=== PATIENT | male | born 1975 | race African-American/Black ===

== ENCOUNTER 2020-02-03 16:53 | Emergency (ER) | payer BC, SELFPAY ==
[2020-01-31 09:53] VITALS: BMI 26.5
[2020-02-03 16:54] VITALS: BP 135/86; PULSE 92; RESP 18; TEMP 36.6; O2SAT 100; BMI 28.3
--- NOTE | 2020-02-03 17:11 | ED.VIS.GEN ---
History of Present Illness Chief Complaint: Numb/Ting Informant: Patient Onset: Days - 1 week Context: Gradual Onset Current Severity: Moderate Maximum Severity: Moderate Narrative: Patient presents stating that he thinks he has Olivia's palsy. He noted some numbness and tingling to the right side of his face. He tells me he was not able to smile appropriately or blink his eyelid when he went to the urgent care on the . Note at that time reports normal facial exam with evidence of dental caries and he was given a prescription for Augmentin. Patient presents with continued symptoms. He feels that the right side of his face is swollen. He has not had fever or chills. Denies headache. Past Medical History - Allergies and Home Meds Allergies/Adverse Reactions: Allergies No Known Allergies Allergy (Unverified 02/03/20 16:57) Primary Care Physician: NOT,DEFINED [Primary Care Provider] - Past Medical History: None Smoking Status: Never smoker Review of Systems General: Denies: Chills, Fever Eyes: Denies: Visual changes - bilaterally ENT: Reports: Right ear pain - Mild pain posterior to right ear Cardiovascular: Denies: Chest pain Respiratory: Denies: Dyspnea, Cough Gastrointestinal: Denies: Abdominal pain, Nausea, Vomiting, Diarrhea Genitourinary: Denies: Dysuria Musculoskeletal: Denies: Myalgias Neurological: Reports: Weakness - Right facial weakness, Numbness Allergy: Denies: Uticaria Physical Exam Vital Signs/Narrative: Vital Signs Temp Pulse Resp BP Pulse Ox 02/03/20 16:54 98 F 92 18 135/86 H 100 General: Well nourished, Well developed Head: Normocephalic Eyes: Perrl, - - Patient is not able to close his right eye. ENT: Moist mucous membranes, - - Patient has evidence with Olivia's palsy with weakness noted on the right. He is unable to raise his right eyebrow, close his right eyelid, or smile on the right side of his face. Neck: Supple Cardiovascular: Regular rate, Regular rhythm Respiratory: No distress, CTA bilaterally Abdomen: Soft, Nontender Skin: Normal color Neurological: Alert, Oriented x3, - - As above Psychological: Normal affect Diagnostic/Tx/Re-eval - Medical Decision Making Patient clearly has signs of Olivia's palsy. Patient be treated with acyclovir and prednisone. He was advised that symptoms can last multiple weeks. ED Disposition - Plan for ED Patient: Disposition: Home or Assisted Living Diagnosis: Olivia's palsy Instructions: ED [place] [facility] Prescriptions: Acyclovir 1 tab PO 5X/DAY #35 tab Transmission Status: Pending to [facility] Prednisone [Deltasone] 40 mg PO DAILY #10 tab Transmission Status: Pending to [facility] Referrals: Elida Mcnulty MD [COURTESY STAFF PHYSICIAN] - As Needed
[2020-02-03] MEDS: predniSONE 20 MG Tablet 40 MG PO (17:45)
[2020-02-03] MEDS: Acyclovir 200 MG Capsule 400 MG PO (17:46)
[2020-02-03 17:49] VITALS: RESP 18
== END 2020-02-03 17:51 | disposition home or self-care (01) ==
LOC: ED 17:30
PROVIDERS: Emergency Provider Emergency Medicine
DX: G51.0 Bell's palsy (principal); K02.9 Dental caries, unspecified
CPT/HCPCS: 99283

== ENCOUNTER 2020-09-21 11:15 | Inpatient (IN) | payer BC, SELFPAY ==
--- NOTE | 2020-09-21 11:30 | NURSING ---
Very pleasant on arrival, alert and oriented. Voiced no concerns. Verbalized usage and demo of call dorantes use and safety.
[2020-09-21 11:43] VITALS: BP 109/64; PULSE 100; RESP 17; TEMP 37.1; O2SAT 97; BMI 29.0; BMI 29.1
[2020-09-21] MEDS: Acetaminophen 325 MG Tablet 650 MG PO ×2 (13:42→19:52)
[2020-09-21] MEDS: oxyCODONE 5 MG Tablet PO ×2 (13:42→19:52)
[2020-09-21] MEDS: Methocarbamol 500 MG Tablet PO ×3 (15:12→20:03)
[2020-09-21] MEDS: Gabapentin 300 MG Capsule PO (19:08)
[2020-09-21 19:15] VITALS: BP 112/66; PULSE 88; RESP 17; TEMP 36.8; O2SAT 98
[2020-09-21 22:00] VITALS: PULSE 82; RESP 16; O2SAT 98
[2020-09-22] MEDS: Acetaminophen 325 MG Tablet 650 MG PO ×2 (02:09→08:12)
[2020-09-22] MEDS: oxyCODONE 5 MG Tablet PO ×2 (02:10→08:11)
[2020-09-22] MEDS: Enoxaparin 40 MG/0.4 ML Syringe SC (06:51)
[2020-09-22 06:55] VITALS: O2SAT 100
[2020-09-22] MEDS: Gabapentin 300 MG Capsule PO ×3 (07:38→22:37)
[2020-09-22 08:57] VITALS: BP 118/69; PULSE 102; RESP 16; TEMP 36.8; O2SAT 100
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
[2020-09-22] MEDS: Methocarbamol 500 MG Tablet PO (09:32)
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
[2020-09-22] MEDS: oxyCODONE 5 MG Tablet 10 MG PO ×2 (10:34→18:58)
[2020-09-22] MEDS: Acetaminophen 500 MG Tablet 1000 MG PO ×2 (13:30→22:36)
[2020-09-22] MEDS: tiZANidine HCl 2 MG Tablet 4 MG PO ×2 (16:31→22:36)
[2020-09-22 19:45] VITALS: BP 123/67; PULSE 98; RESP 18; TEMP 36.6; O2SAT 100
[2020-09-22 22:00] VITALS: RESP 15; O2SAT 98
[2020-09-23] MEDS: oxyCODONE 5 MG Tablet 10 MG PO ×3 (01:16→19:36)
[2020-09-23] MEDS: tiZANidine HCl 2 MG Tablet 4 MG PO ×3 (05:14→21:15)
[2020-09-23] MEDS: Acetaminophen 500 MG Tablet 1000 MG PO ×3 (05:14→21:14)
[2020-09-23] MEDS: Enoxaparin 40 MG/0.4 ML Syringe SC (05:14)
[2020-09-23] MEDS: Senna/Docusate Sodium 1 Tablet 2 TABLET PO (07:42)
[2020-09-23] MEDS: Gabapentin 300 MG Capsule PO ×3 (07:42→19:37)
[2020-09-23 08:39] VITALS: BP 119/79; PULSE 89; RESP 16; TEMP 37.2; O2SAT 97
[2020-09-23 09:16] VITALS: O2SAT 99
[2020-09-23 20:54] VITALS: BP 117/74; PULSE 101; RESP 16; TEMP 36.6; O2SAT 99
[2020-09-23] MEDS: Zolpidem Tartrate 5 MG Tablet PO (21:15)
[2020-09-24] MEDS: oxyCODONE 5 MG Tablet 10 MG PO ×5 (01:33→23:53)
[2020-09-24 06:05] LABS: Hematocrit 28.7 % (40-54); Hemoglobin 8.6 g/dL (13.0-16.5); Mean Corpuscular Hgb 26.4 pg (27.0-32.0); Mean Platelet Vol. 8.5 fl (6.2-12.0); Platelet Count 662 K/mm3 (150-450); RBC Distribution Width SD 45.1 fl (35.1-43.9); Red Blood Count 3.26 M/mm3 (4.6-6.2); White Blood Count 6.2 K/mm3 (4.4-11.0)
[2020-09-24] MEDS: Acetaminophen 500 MG Tablet 1000 MG PO ×3 (06:24→21:34)
[2020-09-24] MEDS: tiZANidine HCl 2 MG Tablet 4 MG PO ×3 (06:24→21:34)
[2020-09-24] MEDS: Enoxaparin 40 MG/0.4 ML Syringe SC (06:42)
[2020-09-24 06:51] LABS: ALB/GLOB Ratio 0.6 RATIO (0.9-2.4); AST(SGOT) 55 U/L (15-37); Alanine Aminotransfer ALT/SGPT 136 U/L (16-61); Albumin, Serum 2.6 g/dL (3.2-5.0); Alkaline Phosphatase 266 U/L (45-117); Anion Gap 5 (5-15); BUN 13 mg/dL (7-18); BUN/Creat Ratio 20.2 RATIO (10-20); Calcium,Total 9.1 mg/dL (8.5-10.1); Chloride 104 mmol/L (98-107); Creatinine, Serum 0.64 mg/dL (0.70-1.30); EST Glomerular Filtration Rate 143 mL/min (>60); Est Glom Filt Rate - Afr Amer 172 mL/min (>60); Estimated Creatinine Clearance 132.92 ml/min; Globulin 4.2 g/dL (2.2-4.2); Glucose 106 mg/dL (74-106); Protein, Total 6.8 g/dL (6.4-8.2); Sodium Level 138 mmol/L (136-145)
[2020-09-24 07:46] LABS: Hemoglobin A1c 5.7 % (3.8-5.6)
[2020-09-24] MEDS: Gabapentin 300 MG Capsule PO ×3 (07:51→21:34)
[2020-09-24 08:43] VITALS: BP 117/75; PULSE 90; RESP 16; TEMP 36.7; O2SAT 94
[2020-09-24 09:22] VITALS: O2SAT 95
[2020-09-24 09:37] LABS: Cholesterol 150 mg/dL (200); High Density Lipoprotein 28 mg/dL; Triglycerides 167 mg/dL; Very Low Density Lipoprotein 33 mg/dL (5-40)
--- NOTE | 2020-09-24 10:50 | NURSING ---
message left for Dr Wells office to make pt f/u appt.
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
[2020-09-24 19:30] VITALS: BP 122/65; PULSE 97; RESP 20; TEMP 37.1; O2SAT 96
[2020-09-24 21:30] VITALS: PULSE 97; RESP 20
[2020-09-24] MEDS: Senna/Docusate Sodium 1 Tablet 2 TABLET PO (21:34)
[2020-09-24] MEDS: Zolpidem Tartrate 5 MG Tablet PO (23:51)
--- NOTE | 2020-09-25 01:13 | NURSING ---
Reviewed and agree with CONSUMER AFFAIRS SPECIALIST documentation & charting.
[2020-09-25] MEDS: tiZANidine HCl 2 MG Tablet 4 MG PO ×3 (05:56→22:13)
[2020-09-25] MEDS: Acetaminophen 500 MG Tablet 1000 MG PO ×3 (05:56→22:12)
[2020-09-25] MEDS: Enoxaparin 40 MG/0.4 ML Syringe SC (05:56)
[2020-09-25] MEDS: oxyCODONE 5 MG Tablet 10 MG PO ×3 (07:44→19:31)
[2020-09-25] MEDS: Gabapentin 300 MG Capsule PO ×3 (07:45→19:30)
[2020-09-25] MEDS: Senna/Docusate Sodium 1 Tablet 2 TABLET PO ×2 (07:45→22:13)
[2020-09-25 08:06] VITALS: BP 123/76; PULSE 88; RESP 18; TEMP 37.1; O2SAT 100
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
[2020-09-25 19:30] VITALS: BP 121/69; PULSE 85; RESP 18; TEMP 36.8; O2SAT 98
[2020-09-25] MEDS: Zolpidem Tartrate 5 MG Tablet PO (22:14)
[2020-09-26] MEDS: oxyCODONE 5 MG Tablet 10 MG PO ×4 (04:26→18:41)
[2020-09-26] MEDS: Enoxaparin 40 MG/0.4 ML Syringe SC (04:53)
[2020-09-26] MEDS: Acetaminophen 500 MG Tablet 1000 MG PO ×3 (04:53→21:00)
[2020-09-26] MEDS: tiZANidine HCl 2 MG Tablet 4 MG PO ×3 (04:53→21:00)
[2020-09-26] MEDS: Senna/Docusate Sodium 1 Tablet 2 TABLET PO ×2 (08:11→21:00)
[2020-09-26] MEDS: Gabapentin 300 MG Capsule PO ×3 (08:11→19:59)
[2020-09-26 08:34] VITALS: BP 142/72; PULSE 97; RESP 18; TEMP 36.8; O2SAT 98
--- NOTE | 2020-09-26 10:25 | CASEMGMT ---
Social Work IDT met with patient and S.O. via conference call for Team meeting. Discussed patient's progress in therapy. Pt is CGA for tx, ambulating 95 ft with FWW, shorter distances with crutches, and uses w/c for mobility as well. Pt is NWBS for LLE with femur fx on RLE./ Pt uses crutches to navigate steps since he has no HR at home. Pt is min-mod for shower tx, [place] for bathing while seated, set up fro grooming and UE dressing, and using ARE while in bed is set up for LE dressing. Pt is progressing well, but not sleeping well. Dr. julien adjust meds. Explained [place] [employer] insurance with NRD 1125 and continued stay is not guaranteed. The goal is for pt to return home with S.O. Will continue to follow. Kathi Diop, [employer] ADMINISTRATOR
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
[2020-09-26 19:17] VITALS: BP 135/66; PULSE 95; RESP 20; TEMP 37.3; O2SAT 99
[2020-09-26 19:50] VITALS: PULSE 95; RESP 20; O2SAT 99
--- NOTE | 2020-09-26 21:10 | NURSING ---
urine obtained for complete ua and sent to the lab
[2020-09-26 21:18] LABS: Bacteria 0 SEEN /hpf (None Seen); Red Blood Cells-Urine 0 SEEN /hpf (0-5); Squamous Epithelial Cells - UA 0 SEEN /hpf (0-5); White Blood Cells 0 SEEN /hpf (0-5)
[2020-09-26 21:28] LABS: Color, Urine Yellow (Yellow); Glucose, Dipstick Normal (Normal); Ketone-Dipstick 5 mg/dl (Negative); Leukocyte Esterase-Dipstick Negative /ul (Negative); Nitrite-Dipstick Negative (Negative); Occult Blood-Urine Negative /ul (Negative); Protein-Dipstick 15 mg/dl (Negative); Specific Gravity, Urine 1.025 (1.002-1.030); Urine Bilirubin Dipstick Negative (Negative); Urine Clarity Clear (Clear); Urine Urobilinogen Normal (Normal)
[2020-09-26 21:42] LABS: Mucous, Urine RARE /hpf (<or=2+)
[2020-09-26] MEDS: Zolpidem Tartrate 5 MG Tablet 10 MG PO (22:44)
--- NOTE | 2020-09-27 02:23 | NURSING ---
Reviewed and agree with HADOOP ADMIN documentation and charting.
[2020-09-27] MEDS: Enoxaparin 40 MG/0.4 ML Syringe SC (04:09)
[2020-09-27] MEDS: oxyCODONE 5 MG Tablet 10 MG PO ×4 (04:09→23:02)
[2020-09-27] MEDS: Acetaminophen 500 MG Tablet 1000 MG PO ×3 (04:09→23:03)
[2020-09-27] MEDS: tiZANidine HCl 2 MG Tablet 4 MG PO ×3 (04:12→23:03)
[2020-09-27 07:48] VITALS: BP 120/67; PULSE 94; RESP 16; TEMP 37; O2SAT 99
[2020-09-27] MEDS: Gabapentin 300 MG Capsule PO ×3 (08:18→18:56)
[2020-09-27 19:33] VITALS: BP 122/83; PULSE 103; RESP 16; TEMP 36.6; O2SAT 99
[2020-09-27] MEDS: Zolpidem Tartrate 5 MG Tablet 10 MG PO (23:03)
[2020-09-28] MEDS: Acetaminophen 500 MG Tablet 1000 MG PO ×3 (05:22→22:39)
[2020-09-28] MEDS: Enoxaparin 40 MG/0.4 ML Syringe SC (05:23)
[2020-09-28] MEDS: oxyCODONE 5 MG Tablet 10 MG PO ×3 (05:29→19:56)
[2020-09-28] MEDS: tiZANidine HCl 2 MG Tablet 4 MG PO ×3 (05:32→22:39)
[2020-09-28 08:11] VITALS: BP 135/64; PULSE 90; RESP 16; TEMP 37; O2SAT 99
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
[2020-09-28] MEDS: Polyethylene Glycol 3350 17 GM PACKET PO (09:39)
[2020-09-28] MEDS: Senna/Docusate Sodium 1 Tablet 2 TABLET PO (09:40)
[2020-09-28] MEDS: Gabapentin 300 MG Capsule PO ×3 (09:40→19:56)
[2020-09-28] MEDS: Arthritis Pain Compound 60 CLICK TUBE TOPICAL (19:57)
[2020-09-28 22:00] VITALS: BP 120/68; PULSE 95; RESP 18; TEMP 36.4; O2SAT 98
[2020-09-28] MEDS: Zolpidem Tartrate 5 MG Tablet 10 MG PO (22:39)
[2020-09-29] MEDS: Enoxaparin 40 MG/0.4 ML Syringe SC (06:20)
[2020-09-29] MEDS: tiZANidine HCl 2 MG Tablet 4 MG PO ×3 (06:21→21:31)
[2020-09-29] MEDS: Acetaminophen 500 MG Tablet 1000 MG PO ×3 (06:21→21:32)
[2020-09-29] MEDS: oxyCODONE 5 MG Tablet 10 MG PO ×2 (06:21→13:50)
[2020-09-29] MEDS: Gabapentin 300 MG Capsule PO ×3 (07:45→20:55)
[2020-09-29] MEDS: Arthritis Pain Compound 60 CLICK TUBE TOPICAL ×2 (07:45→21:29)
[2020-09-29 08:43] VITALS: BP 118/72; PULSE 83; RESP 16; TEMP 37.2; O2SAT 97
[2020-09-29 19:28] VITALS: BP 113/70; PULSE 81; RESP 16; TEMP 36.6; O2SAT 98
[2020-09-29] MEDS: oxyCODONE 5 MG Tablet PO (21:30)
[2020-09-29 22:00] VITALS: PULSE 76; RESP 16; O2SAT 97
[2020-09-29] MEDS: Zolpidem Tartrate 5 MG Tablet 10 MG PO (22:30)
[2020-09-30] MEDS: Enoxaparin 40 MG/0.4 ML Syringe SC (05:13)
[2020-09-30] MEDS: tiZANidine HCl 2 MG Tablet 4 MG PO ×3 (05:14→21:25)
[2020-09-30] MEDS: Acetaminophen 500 MG Tablet 1000 MG PO ×3 (05:14→21:00)
[2020-09-30] MEDS: oxyCODONE 5 MG Tablet 10 MG PO ×3 (05:14→20:50)
--- NOTE | 2020-09-30 05:30 | NURSING ---
Pt c/o discomfort in bed. Pain meds provided and pt repositioned to recliner. Pt c/o pain to neck and back while in bed. Staff to continue to monitor.
--- NOTE | 2020-09-30 06:49 | NURSING ---
Pt refused a.m. ADLs when offered by staff and stated that he wasn't going to do anything today.
[2020-09-30] MEDS: Gabapentin 300 MG Capsule PO ×3 (07:45→20:50)
[2020-09-30] MEDS: Arthritis Pain Compound 60 CLICK TUBE TOPICAL ×2 (07:47→21:28)
[2020-09-30 08:00] VITALS: BP 126/61; PULSE 93; RESP 14; TEMP 36.8; O2SAT 100
[2020-09-30 08:41] LABS: Hematocrit 32.9 % (40-54); Hemoglobin 9.9 g/dL (13.0-16.5); Mean Corp Hgb Conc 30.1 g/dL (32-36); Mean Corpuscular Hgb 26.1 pg (27.0-32.0); Mean Corpuscular Volume 86.8 fL (80-94); Mean Platelet Vol. 8.3 fl (6.2-12.0); Platelet Count 658 K/mm3 (150-450); RBC Distribution Width CV 14.2 % (11.6-14.6); RBC Distribution Width SD 45.1 fl (35.1-43.9); Red Blood Count 3.79 M/mm3 (4.6-6.2); White Blood Count 5.2 K/mm3 (4.4-11.0)
[2020-09-30 09:12] LABS: ALB/GLOB Ratio 0.8 RATIO (0.9-2.4); AST(SGOT) 16 U/L (15-37); Alanine Aminotransfer ALT/SGPT 59 U/L (16-61); Albumin, Serum 3.2 g/dL (3.2-5.0); Alkaline Phosphatase 235 U/L (45-117); Anion Gap 5 (5-15); BUN 16 mg/dL (7-18); BUN/Creat Ratio 19.9 RATIO (10-20); Calcium,Total 9.6 mg/dL (8.5-10.1); Chloride 105 mmol/L (98-107); EST Glomerular Filtration Rate 110 mL/min (>60); Est Glom Filt Rate - Afr Amer 134 mL/min (>60); Estimated Creatinine Clearance 106.33 ml/min; Globulin 4.2 g/dL (2.2-4.2); Glucose 138 mg/dL (74-106); Potassium 3.8 mmol/L (3.5-5.1); Protein, Total 7.4 g/dL (6.4-8.2); Sodium Level 140 mmol/L (136-145)
[2020-09-30 19:28] VITALS: BP 126/83; PULSE 96; RESP 16; TEMP 36.9; O2SAT 99
[2020-09-30 21:15] VITALS: PULSE 94; RESP 17; O2SAT 99
[2020-09-30] MEDS: Zolpidem Tartrate 5 MG Tablet 10 MG PO (22:44)
[2020-10-01] MEDS: oxyCODONE 5 MG Tablet 10 MG PO ×4 (04:05→20:16)
[2020-10-01] MEDS: Enoxaparin 40 MG/0.4 ML Syringe SC (06:43)
[2020-10-01] MEDS: Acetaminophen 500 MG Tablet 1000 MG PO ×3 (06:44→21:30)
[2020-10-01] MEDS: tiZANidine HCl 2 MG Tablet 4 MG PO ×3 (06:44→20:20)
[2020-10-01 07:52] VITALS: BP 114/58; PULSE 92; RESP 16; TEMP 37.1; O2SAT 100
[2020-10-01] MEDS: Gabapentin 300 MG Capsule PO ×3 (08:03→20:16)
[2020-10-01] MEDS: Arthritis Pain Compound 60 CLICK TUBE TOPICAL ×2 (08:03→20:20)
--- NOTE | 2020-10-01 10:42 | CASEMGMT ---
Social Work Pt requesting to DC home 10/02. IDT agreeable. Referred to [facility] for FWW, w/c, 3-in-1 commode. Pt to f/u with physician whom to recommend continued therapy regimen. S.O. to transport home. No other needs. Plan: DC home with S.O. 10/02, [facility] - FWW, w/c, 3-in-1 commode. No therapy. Kathi Diop, UNSTACKER WELT DRAWER
[2020-10-01 19:21] VITALS: BP 123/75; PULSE 93; RESP 17; TEMP 37; O2SAT 99
[2020-10-01 19:39] VITALS: PULSE 93; RESP 17; O2SAT 99
[2020-10-01] MEDS: Zolpidem Tartrate 5 MG Tablet 10 MG PO (23:12)
[2020-10-02] MEDS: oxyCODONE 5 MG Tablet 10 MG PO ×2 (04:55→12:39)
[2020-10-02] MEDS: Acetaminophen 500 MG Tablet 1000 MG PO (04:57)
[2020-10-02] MEDS: tiZANidine HCl 2 MG Tablet 4 MG PO (04:59)
--- NOTE | 2020-10-02 05:02 | NURSING ---
pt requested meds early this a.m. to enable rest.
[2020-10-02] MEDS: Arthritis Pain Compound 60 CLICK TUBE TOPICAL (08:05)
[2020-10-02] MEDS: Gabapentin 300 MG Capsule PO ×2 (08:05→12:06)
[2020-10-02] MEDS: Senna/Docusate Sodium 1 Tablet 2 TABLET PO (08:07)
[2020-10-02 08:31] VITALS: BP 109/85; PULSE 85; RESP 16; TEMP 36.9; O2SAT 98
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
[2020-10-02 13:04] VITALS: BP 109/85; PULSE 85; RESP 16; TEMP 36.9; O2SAT 99
--- NOTE | 2020-10-02 13:05 | NURSING ---
Discharged home with family. Discharge medication, instructions and appointments reviewed with pt. Denies questions or concerns
== END 2020-10-02 13:00 | disposition home or self-care (01) | DRG 560 ==
PROVIDERS: Admitting Provider Internal Medicine; Visit Provider Internal Medicine
DX: S72.21XD Displaced subtrochanteric fracture of right femur, subsequent encounter for closed fracture with routine healing (principal); D62 Acute posthemorrhagic anemia; S82.142D Displaced bicondylar fracture of left tibia, subsequent encounter for closed fracture with routine healing; S82.402D Unspecified fracture of shaft of left fibula, subsequent encounter for closed fracture with routine healing; V28.9XXD Unspecified motorcycle rider injured in noncollision transport accident in traffic accident, subsequent encounter; M47.812 Spondylosis without myelopathy or radiculopathy, cervical region; S83.512D Sprain of anterior cruciate ligament of left knee, subsequent encounter; S83.412D Sprain of medial collateral ligament of left knee, subsequent encounter; M21.372 Foot drop, left foot; G57.32 Lesion of lateral popliteal nerve, left lower limb; S83.249D Other tear of medial meniscus, current injury, unspecified knee, subsequent encounter; F17.210 Nicotine dependence, cigarettes, uncomplicated; R94.31 Abnormal electrocardiogram [ECG] [EKG]; E74.39 Other disorders of intestinal carbohydrate absorption
CPT/HCPCS: 36415; 76870; 80053; 80061; 81001; 83036; 85027; 93976; 97110; 97116; 97162; 97166; 97530; 97535; 97802; 97803; 99251; 99406; G0463

== ENCOUNTER → 2020-12-31 09:17 | Outpatient (CLI) | payer BC, SELFPAY ==
[2020-12-31 08:10] VITALS: BMI 28.7
[2020-12-31 12:23] LABS: Absolute Lymphocyte Count 2.35 X10^3/uL (0.83-4.51); Absolute Neutrophil Count 2.9 X10^3/uL (2.0-7.7); Basophil# 0.01 X10^3/uL; Basophil% 0.2 % (0-1); Eosinophil# 0.29 X10^3/uL; Eosinophils% 4.7 % (0-5); Hematocrit 45.9 % (40-54); Lymphocyte # 2.35 X10^3/ul (4.0); Lymphocyte % 38.1 % (19-41); Mean Corp Hgb Conc 30.5 g/dL (32-36); Mean Corpuscular Hgb 24.7 pg (27.0-32.0); Mean Platelet Vol. 9.5 fl (6.2-12.0); Monocyte# 0.61 X10^3/uL; Monocyte% 9.9 % (0-10); NRBC Flagged by Analyzer 0 % (0-5); Neutrophil # 2.89 X10^3/uL (2.7-7.7); Neutrophil % 46.9 % (47-70); Platelet Count 384 K/mm3 (150-450); RBC Distribution Width CV 15.7 % (11.6-14.6); RBC Distribution Width SD 46.3 fl (35.1-43.9); Red Blood Count 5.67 M/mm3 (4.6-6.2); White Blood Count 6.2 K/mm3 (4.4-11.0)
[2020-12-31 12:43] LABS: Hemoglobin A1c 5.9 % (3.8-5.6)
[2020-12-31 13:00] LABS: AST(SGOT) 15 U/L (15-37); Alanine Aminotransfer ALT/SGPT 26 U/L (16-61); Albumin, Serum 3.8 g/dL (3.2-5.0); Alkaline Phosphatase 119 U/L (45-117); Anion Gap 6 (5-15); BUN 14 mg/dL (7-18); BUN/Creat Ratio 16.3 RATIO (10-20); Calcium,Total 9.3 mg/dL (8.5-10.1); Chloride 107 mmol/L (98-107); Creatinine, Serum 0.86 mg/dL (0.70-1.30); EST Glomerular Filtration Rate 102 mL/min (>60); Est Glom Filt Rate - Afr Amer 124 mL/min (>60); Globulin 3.9 g/dL (2.2-4.2); Glucose 97 mg/dL (74-106); Protein, Total 7.7 g/dL (6.4-8.2); Sodium Level 140 mmol/L (136-145)
[2020-12-31 13:39] LABS: Vitamin D,25 Hydroxy 9.9 ng/mL
== END ==
PROVIDERS: PCP Internal Medicine; Visit Provider Internal Medicine
DX: R73.9 Hyperglycemia, unspecified (principal); Z12.5 Encounter for screening for malignant neoplasm of prostate; R73.09 Other abnormal glucose
CPT/HCPCS: 36415; 80053; 82306; 83036; 84153; 85025; G0103

== ENCOUNTER 2021-02-15 07:00 | Outpatient (RCR) | payer BC, SELFPAY ==
[2020-11-05 09:05] VITALS: BMI 27.1
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
--- NOTE | 2021-01-17 11:01 | HP.PTREVAL_ITS ---
GIOVANY CHEATHAM, It has been my pleasure to treat ASHANTI NEAL over the last 17 visits for L knee dislocation, R femur fracture. Please see the progress note below for an update on the physical therapy plan of care! Subjective: I dont really have pain, i am just really stiff Objective/Function: B LE pain is 0/10 at rest, increases to 3/10 with ambulation, 6/10 with sit to stand transfers. L knee ROM: 0-6-101. MMT: L LE is grossly 4+/5 with exception to L ankle 0/5. R LE 5/5 throughout. Gait: Pt still displays a significant limp on his L LE with gait. Pt is able to ambulate greater than 1000 feet at a slow pace. Pt experiences increased pain in L knee (3/10) while walking. Transfers: Pt still has difficulty with sit to stand. Notes increased L knee pain (6/10). Pt would benefit from further skilled PT to increase B LE strength and tolerance for ambulation Plan Plan: B LE strengthening, L knee stretching and mobs, balance and proprio, core strengthening, nustep, and HEP Goals Goal 1:: Decrease B LE pain x 50% to aid with sleep Goal Time Frame: 6-8 Weeks Goal Progress: Goal Met Goal 2:: Increase B LE strength x 1 grade to aid with RTW without limitation Goal Time Frame: 6-8 Weeks Goal Progress: Progressing Goal 3:: Increase L knee ROM x 40 degrees to aid with restoring a more normaliz ed gait pattern. Goal Time Frame: 6-8 Weeks Goal 4:: I with HEP Goal Time Frame: 6-8 Weeks Goal Progress: Progressing Goal 5:: Pt will be able to transfer sit to stand without pain Goal Progress: New goal Goal 6:: Pt will be able to ambulate greater than 1000 feet without increased pain Goal Time Frame: New goal Anticipated Interventions Patient/Client Instruction: Educate patient on: Condition, Plan of Care For the Purpose of:: To improve self management Therapeutic Exercise to Include: Strength training, Endurance training, Balance training, Flexibilty training, Gait and locomotor training, Passive ROM, Active ROM, Dynamic Lumbar Stabilization For the Purpose of:: To decrease pain, To increase ROM, To improve muscle performance and motor function Cryotherapy (ice pack, ice massage): Yes For the Purpose of:: To decrease pain Please do not hesitate to contact me at [phone] by phone or if you have questions or concerns regarding this new plan of care! Sincerely, Fermín Gama, PT, ATC
--- NOTE | 2021-05-09 10:36 | HP.PT.NRP ---
ASHANTI NEAL was seen in my office for initial evaluation on 11/20/20. The following Plan of Care was established for this patient: Initial Frequency: 2-3x /Week Initial Duration: 2-4 Months Patient/Client Instruction: Educate patient on: Condition, Plan of Care For the Purpose of:: To improve self management Therapeutic Exercise to Include: Strength training, Endurance training, Balance training, Flexibilty training, Gait and locomotor training, Passive ROM, Active ROM, Dynamic Lumbar Stabilization For the Purpose of:: To decrease pain, To increase ROM, To improve muscle performance and motor function Cryotherapy (ice pack, ice massage): Yes For the Purpose of:: To decrease pain This patient was last seen in our office . Pertinent comments regarding their Physical therapy will appear below: This patient was treated for 25 PT visits for B LE pain through the date of 02/15/21. Pt has not returned through todays date and is discontinued at this time. At this point I will be discontinuing this patient from physical therapy. I would be happy to see this patient again in the future if found appropriate by the physician. Thank you! Fermín Gama, PT, ATC
== END 2021-02-15 19:00 | disposition home or self-care (01) ==
LOC: PT 07:00
PROVIDERS: PCP Internal Medicine
DX: S83.512D Sprain of anterior cruciate ligament of left knee, subsequent encounter (principal); S83.207D Unspecified tear of unspecified meniscus, current injury, left knee, subsequent encounter; S82.142D Displaced bicondylar fracture of left tibia, subsequent encounter for closed fracture with routine healing; S83.105D Unspecified dislocation of left knee, subsequent encounter; S72.91XD Unspecified fracture of right femur, subsequent encounter for closed fracture with routine healing; V29.9XXD Motorcycle rider (driver) (passenger) injured in unspecified traffic accident, subsequent encounter; G57.32 Lesion of lateral popliteal nerve, left lower limb
CPT/HCPCS: 97110; 97140; 97161; 97164

== ENCOUNTER 2021-09-17 16:07 | Emergency (ER) | payer OTHER, BC, SELFPAY ==
[2021-09-17 16:08] VITALS: BP 129/90; PULSE 87; RESP 16; TEMP 36.6; O2SAT 99; BMI 30.3
--- NOTE | 2021-09-17 17:36 | EX.ED.DYSGE1 ---
HPI History of Present Illness Chief Complaint: Foreign Body Detail of Chief Complaint: Foreign body right hand Informant: patient Narrative Narrative: Patient presents to the emergency department with complaint of foreign body in his right hand. 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 Patient took his gloves off and ran his right hand down the side of his pants and felt sudden onset of severe pain in his hand. Patient went to urgent care and had x-rays where it was noted that he had a metallic foreign body in the hand. Patient was referred to the emergency department. Patient is up-to-date on tetanus. Prior similar symptoms: No PFSH COUNTS INCLUDE 234 BEDS AT THE [facility] Medical History (Updated 09/17/21 @ 17:[address] 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 Shoulder pain Home Medications acetaminophen 1,000 mg PO Q8H tab 10/02/20 [Rx Last Taken Unknown] ibuprofen 200 mg tablet 200 mg PO Q6H PRN 04/05/21 [History Last Taken Unknown] cephalexin 500 mg PO Q6 #40 capsule 09/17/21 [Rx Last Taken Unknown] hydrocodone-acetaminophen 1 tab PO Q4H PRN PRN 2 Days #10 tablet 09/17/21 [Rx Last Taken Unknown] Allergy/AdvReac Type Severity Reaction Status Date / Time No Known Allergies Allergy Verified 09/17/21 16:11 Family History Mother Diabetes Uncle Diabetes Brother Asthma Social History Smoking Status: Former smoker alcohol intake: never substance use type: does not use what type of physical activity do you participate in: none ROS ROS ED ROS Narrative Foreign body right hand Constitutional Constitutional ED: Reports systems reviewed and no addt'l complaints, except as documented; Denies body ache(s), change in weight or chills Eyes Eyes: Denies acute decrease in peripheral vision, change in vision, double vision or loss of vision ENT ENT ED: Reports none; Denies ear pain, lip swelling, loss taste/smell, neck pain, otalgia or sore throat Cardiovascular Cardiovascular: Reports none; Denies abdominal pain, chest pain with activity, leg edema, lightheadedness, palpitations, rapid heart rate or syncope Respiratory/Chest Respiratory/Chest: Reports none; Denies change in mental status, dry cough, dyspnea, hemoptysis, shortness of breath at rest or shortness of breath with exertion Gastrointestinal Gastrointestinal: Reports none; Denies abdominal pain, change in stool character, diarrhea, hematemesis, hematochezia, melena, rectal bleeding or vomiting Genitourinary Genitourinary ED: Reports none; Denies abdominal discomfort, anuria, dysuria, genital pain or polyuria Musculoskeletal Musculoskeletal: Reports none; Denies arthralgias, back pain, difficulty walking, extremity pain, muscle weakness or myalgias Integumentary Reports none; Denies abscess or rash Neurologic Neurologic: Reports none; Denies abnormal gait, confusion, focal weakness, frequent falls, headache(s), loss of vision, numbness, paresthesias, radicular pain, vertigo or weakness Psychiatric Psychiatric: Reports systems reviewed and no addt'l complaints, except as documented and none; Denies behavioral changes, confusion, difficulty concentrating, hallucinations, suicidal ideation, tactile hallucinations or visual hallucinations Endocrine Endocrinology: Denies none, cold intolerance, excessive sweating, fatigue or heat intolerance Hematologic/Lymphatic Hematologic/Lymphatic: Reports none; Denies anemia, easy bleeding or easy bruising Allergic/Immunologic Allergic/Immunologic ED: Denies as per HPI, none, lip swelling, mouth swelling, throat swelling, tongue swelling or hives EXAM Physical Exam Const Vital Signs: 09/17/21 16:08 09/17/21 16:19 Temperature 97.8 F Temperature Source Temporal Pulse Rate 87 Respiratory Rate 16 Respiratory Effort Normal Non-Labored Respiratory Pattern Normal Blood Pressure 129/90 H Blood Pressure Mean 103 Pulse Ox 99 Oxygen Delivery Method Room Air Positive well nourished and well developed General Appearance ED: well developed and NAD HEENT Reports TM's clear and moist mucous membranes normocephalic and atraumatic; Negative for trauma or tenderness Tympanic Membrane ED: Yes TM's clear Eyes PERRL and EOMs intact bilaterally General Eye ED: Negative for pale conjunctiva or scleral icterus Neck no lymphadenopathy, supple and no JVD General: Negative for tenderness Chest Wall inspection of chest normal and palpation of chest normal Chest: Negative for tenderness Resp normal respiratory effort and clear to auscultation bilaterally Effort and Inspection: Negative for respiratory distress or pain with movement Auscultation: Negative for rhonchi, wheezes or diminished lung sounds Cardio regular rate, regular rhythm, S1 normal heart sound, S2 normal heart sound and no murmurs Peripheral Pulses: pulses 2+ throughout GI normal to inspection, nondistended, normoactive bowel sounds, soft to palpation, non-tender, non-distended and no masses Back/Spine no CVA tenderness and no thoracic nor lumbar tenderness Extremity Extremity Narrative: Patient has a very small punctate puncture wound noted in the webspace between the thumb and index finger on the palmar surface. There is some soft tissue swelling noted. There is tenderness to palpation around the puncture wound. Patient has normal range of motion flexion extension of both digits. Neurovascular intact. General Extremety ED: Yes edema General Extremity: edema Neuro oriented x3, CN's II-XII intact bilaterally, no sensory deficits noted and gait normal Sensorium / Orientation: awake, alert, oriented to person, oriented to place and oriented to time Motor Exam: strength 5/5 throughout and strength abnormal Psych mental status grossly normal Skin no rashes or lesions noted and no wounds MDM MDM MDM Narrative Medical decision making narrative: The x-rays were uploaded and the foreign body was noted to be near the metacarpal head of the second metacarpal. Foreign body measured approximately 1.5 cm in length by approximately 2 mm in diameter. I discussed case with orthopedic surgeon on-call who recommended attempting to find the foreign body by local anesthetic and small incision. Area of the right hand was sterilely draped and prepped. Skin closed with Shur-Clens and anesthetized locally with 1% lidocaine with epinephrine a total of 2 cc. Using an 11 blade a made a V-shaped incision measuring approximately 1 cm in length. With splinter forceps I attempted to locate the foreign body unsuccessfully. At this point I discussed case with orthopedic surgeon once again who recommended placing a suture in the laceration and antibiotics and follow-up with our office as this will likely require operative removal with C arm. Discharge Plan Triage Chief Complaint: Foreign Body ED Provider: Delonte Martin Dx/Rx/DC Orders Clinical Impression: Acute foreign body of right hand Instructions: ED Foreign Body Soft Tissue Prescriptions: New cephalexin [cephalexin] 500 MG capsule 500 mg PO Q6 Qty: 40 RF: 0 hydrocodone-acetaminophen [hydrocodone-acetaminophen] 1 TABLET tablet 1 tab PO Q4H PRN PRN (Reason: Pain) 2 Days Qty: 10 RF: 0 No Action ibuprofen [Advil] 200 mg tablet 200 mg PO Q6H PRNRF: 0 acetaminophen 500 MG tablet 1,000 mg PO Q8H RF: 0 Primary Care Provider: Shahana Doll Referrals: Shahana Doll MD [Primary Care Provider] - Jose A Shook DO [STAFF PHYSICIAN] - 3-5 Days
[2021-09-17] MEDS: Lidocaine 1% /Epi 1:100 (20ml) 20 ML Vial 4 ML INFILT (18:35)
== END 2021-09-17 18:36 | disposition home or self-care (01) ==
PROVIDERS: Emergency Provider Emergency Medicine; PCP Internal Medicine
DX: S60.551A Superficial foreign body of right hand, initial encounter (principal); W45.8XXA Other foreign body or object entering through skin, initial encounter; R73.03 Prediabetes; Z87.891 Personal history of nicotine dependence; Y93.89 Activity, other specified; Y92.89 Other specified places as the place of occurrence of the external cause; Y99.0 Civilian activity done for income or pay
CPT/HCPCS: 10120; 99284

== ENCOUNTER → 2021-10-09 09:55 | Outpatient (CLI) | payer BC, SELFPAY ==
[2021-10-09 12:39] LABS: Hematocrit 40.4 % (40-54); Hemoglobin 12.9 g/dL (13.0-16.5); Mean Corp Hgb Conc 31.9 g/dL (32-36); Mean Corpuscular Hgb 26.9 pg (27.0-32.0); Mean Corpuscular Volume 84.2 fL (80-94); Mean Platelet Vol. 9.9 fl (6.2-12.0); Platelet Count 366 K/mm3 (150-450); RBC Distribution Width CV 13.2 % (11.6-14.6); RBC Distribution Width SD 41.1 fl (35.1-43.9); White Blood Count 6.1 K/mm3 (4.4-11.0)
[2021-10-09 12:45] LABS: Anion Gap 6 (5-15); BUN 14 mg/dL (7-18); BUN/Creat Ratio 16.6 RATIO (10-20); Calcium,Total 8.8 mg/dL (8.5-10.1); Chloride 110 mmol/L (98-107); Creatinine, Serum 0.84 mg/dL (0.70-1.30); EST Glomerular Filtration Rate 104 mL/min (>60); Est Glom Filt Rate - Afr Amer 126 mL/min (>60); Glucose 106 mg/dL (74-106); Potassium 4.1 mmol/L (3.5-5.1); Sodium Level 142 mmol/L (136-145)
== END ==
PROVIDERS: PCP Internal Medicine; Referring Provider Student in an Organized Health Care Education/Training Program; Visit Provider Student in an Organized Health Care Education/Training Program
DX: Z01.818 Encounter for other preprocedural examination (principal)
CPT/HCPCS: 36415; 80048; 85027

== ENCOUNTER 2021-11-28 10:54 | Outpatient (CLI) | payer BC, SELFPAY | END 2021-11-28 23:59 | disposition short-term general hospital (02) | LOC: LABSPEC 10:54 | PROVIDERS: PCP Internal Medicine; Referring Provider Physician Assistant; Visit Provider Physician Assistant | DX: U07.1 COVID-19 (principal) | CPT/HCPCS: 87635; U0003; U0005 ==

== ENCOUNTER 2021-12-02 14:12 | Outpatient (CLI) | payer BC, SELFPAY | END 2021-12-02 23:59 | disposition short-term general hospital (02) | LOC: LABSPEC 14:13 | PROVIDERS: PCP Internal Medicine; Visit Provider Physician Assistant Surgical | DX: U07.1 COVID-19 (principal) | CPT/HCPCS: 87635; U0003; U0005 ==

== ENCOUNTER 2023-10-11 06:55 | Emergency (ER) | payer OTHER, BC, SELFPAY ==
[2023-10-11 06:56] VITALS: BP 130/85; PULSE 82; RESP 16; TEMP 36.6; O2SAT 97; BMI 31.4
--- NOTE | 2023-10-11 07:10 | EDS_ITS ---
HPI History of Present Illness Chief Complaint: Laceration Narrative Narrative: 48-year-old male who denies significant past medical history, [id number], presents with injury to his right wrist that he sustained at work as he was leaving. He states he fell and there was a piece of metal that a fall/punctured his right wrist. His tetanus immunization is current, within the last 3 years from surgery. He denies other injury. He presents for evaluation of a laceration/skin tear to his right wrist. His supervisor [employer] is present and states that the piece of metal is larger, and perhaps shape like a knife. Tetanus Immunization: <[address] 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 HEENT: No sore throat. No neck pain. No loss of vision. No rhinorrhea. Cardiovascular: No chest pain. No palpitations. No pedal edema. Respiratory: No cough, no shortness of breath. Abdominal: No abdominal pain. No nausea. No vomiting. Genitourinary: No dysuria. No hematuria. Musculoskeletal: No myalgias. No arthralgias. Neurologic: No headaches. No dizziness. No lightheadedness. Skin: No rash. No change in color. Laceration/avulsion to right wrist. Psychiatric: No depression. No anxiety. EXAM Physical Exam Narrative Exam Narrative: Afebrile. Vital signs noted. GCS 15. ABCs intact. Regular rate and rhythm. Lungs clear to auscultation bilaterally. Abdomen soft nontender. Focused examination of the right wrist reveals approximate 0.5 cm skin avulsion on the right wrist lateral to the palpa ble radial pulse. He has full range of motion of his wrist, able to oppose thumb. Good capillary refill of fingertips. Uninjured at elbow and above. No active bleeding of skin avulsion. Const Vital Signs: 10/11/23 06:56 Temperature 97.8 F Temperature Source Temporal Pulse Rate 82 Respiratory Rate 16 Blood Pressure 130/85 H Blood Pressure Mean 100 Pulse Ox 97 MDM MDM MDM Narrative Medical decision making narrative: Patient has been applying pressure to the wound. I do feel this is more of a skin avulsion. I discussed with him wound closure, but I do not feel that this is amenable to suturing as well. He was told of the risk of infection and scarring and acknowledges an understanding. His wound will be cleansed and he requested Steri-Strips/surgical tape. He will keep the area clean and dry and follow-up with [facility] or a [place] [employer] provider in the next 3 to 5 days. He was given a note to return to work today but to keep the wound covered. I feel he can be discharged safely home with follow-up. Return instructions were reviewed. Disposition is discharged home in stable condition. Differential Diagnosis Differential Diagnosis: Not applicable Discharge Plan Triage Chief Complaint: Laceration ED Provider: Everardo England Dx/Rx/DC Orders Clinical Impression: Avulsion of skin of right wrist Instructions: ED Skin Tear (Skin Avulsion) Prescriptions: No Action NK Stand Alone Forms: Work Status Form Primary Care Provider: Shahana Doll Referrals: [facility] [Group of Physicians] - 3-5 Days if not improving Shahana Doll MD [Primary Care Provider] - Disposition Disposition: Home, Self Care Discharge Date/Time: 10/11/23 08:27
== END 2023-10-11 08:27 | disposition home or self-care (01) ==
LOC: ED 07:15
PROVIDERS: Emergency Provider Emergency Medicine; PCP Internal Medicine; Visit Provider Emergency Medicine
DX: S61.401A Unspecified open wound of right hand, initial encounter (principal); S61.531A Puncture wound without foreign body of right wrist, initial encounter; Z87.891 Personal history of nicotine dependence; Y93.89 Activity, other specified; Y99.0 Civilian activity done for income or pay; Y92.89 Other specified places as the place of occurrence of the external cause; W18.09XA Striking against other object with subsequent fall, initial encounter
CPT/HCPCS: 99283